=== PATIENT | female | born 1990 | race African-American/Black ===

== ENCOUNTER 2018-05-20 21:29 | Emergency (ER) | payer MEDICAID ==
[~2018-05-20] VITALS: Ht 162.6 cm; Wt 73.7 kg
[~2018-05-20 21:29] MED LIST: INSU3INS6 SQ
[2018-05-21] MEDS ORDERED: METOCLOPRAMIDE 10MG/10 ML UDC PO ONE (01:15)
[2018-05-21] MEDS ORDERED: ACETAMINOPHEN 650MG/20.3ML UDC PO ONE (01:15)
[2018-05-21 01:35] LABS: CLARITY URINE CLEAR (CLEAR); COLOR URINE YELLOW (YELLOW); KETONES URINE NEGATIVE (NEGATIVE); LEUKOCYTE ESTERASE URINE 1+ (NEGATIVE); NITRITE URINE NEGATIVE (NEGATIVE); OCCULT BLOOD URINE NEGATIVE (NEGATIVE); PH URINE 7.5 (4.5-8.0); PROTEIN URINE 2+ (NEGATIVE); SPECIFIC GRAVITY URINE 1.021 (1.005-1.030)
[2018-05-21 02:12] VITALS: BP 137/88
[2018-05-21 02:20] LABS: BASOPHILS % 0.4 % (0.0-2.0); EOSINOPHILS % 0.9 % (0.0-5.0); HEMATOCRIT. 38.1 % (36.0-48.0); HEMOGLOBIN. 12.4 g/dL (12.0-16.0); LYMPHOCYTES % 30.4 % (20.0-50.0); MEAN CORPUSCULAR HEMOGLOBIN 29.8 pg (28.0-32.0); MEAN CORPUSCULAR VOLUME 91.5 fL (81.0-99.0); MEAN PLATELET VOLUME 10.4 fl (7.4-10.4); MONOCYTES % 5.7 % (2.0-8.0); NEUTROPHILS % 62.6 % (40.0-76.0); PLATELET 225 x1000/uL (130-400); RED BLOOD CELL COUNT 4.16 mill/uL (4.2-5.4); RED CELL DISTRIBUTION WIDTH 14.2 % (11.6-14.6)
[2018-05-21 02:26] LABS: CHLORIDE 105 mEq/L (98-107)
[2018-05-21 02:52] LABS: B-HCG QUANTITATIVE 52441 mIU/mL (<3)
== END 2018-05-21 03:30 | disposition home or self-care (01) ==
LOC: ER 21:44
DX: O23.41 Unspecified infection of urinary tract in pregnancy, first trimester (principal); O21.9 Vomiting of pregnancy, unspecified; O24.911 Unspecified diabetes mellitus in pregnancy, first trimester; Z3A.10 10 weeks gestation of pregnancy
CPT/HCPCS: 36415; 76801; 80053; 81003; 81025; 82962; 84702; 85025; 99285; J8597

== ENCOUNTER 2018-08-09 22:07 | Observation (INO) | payer MEDICAID ==
[~2018-08-09] VITALS: Ht 157.5 cm; Wt 74.8 kg
[2018-08-09] MEDS ORDERED: INSU100V34 SQ (22:52)
[2018-08-09] MEDS ORDERED: NPH,100V SQ (22:52)
[2018-08-09] MEDS ORDERED: ACETAMINOPHEN 500MG TABLET PO SCH (23:00)
== END 2018-08-10 00:05 | disposition home or self-care (01) ==
LOC: L&D 22:07
PROVIDERS: ADMIT Obstetrics & Gynecology; ATTEND Obstetrics & Gynecology
DX: O26.892 Other specified pregnancy related conditions, second trimester (principal); S39.91XA Unspecified injury of abdomen, initial encounter; Z3A.21 21 weeks gestation of pregnancy; X58.XXXA Exposure to other specified factors, initial encounter; Y93.89 Activity, other specified; Y92.89 Other specified places as the place of occurrence of the external cause; Y99.8 Other external cause status
CPT/HCPCS: 76815; 99281; G0378

== ENCOUNTER 2018-08-28 17:52 | Emergency (ER) | payer MEDICAID ==
[~2018-08-28] VITALS: Ht 165.1 cm; Wt 78.0 kg
[~2018-08-28 17:52] MED LIST changes: +INSU100V34 SQ; -INSU3INS6 SQ; +NPH,100V SQ
[2018-08-28 17:53] VITALS: BP 124/81
== END 2018-08-28 21:35 | disposition left against medical advice (07) ==
LOC: ER 17:52
DX: Z53.21 Procedure and treatment not carried out due to patient leaving prior to being seen by health care provider (principal)
CPT/HCPCS: 96360; 96361; 96365; 99281